=== PATIENT | male | born 1990 | race Caucasian/White ===

== ENCOUNTER 2022-02-02 18:35 | Emergency (ER) | payer SELFPAY ==
[~2022-02-02] VITALS: Ht 165.1 cm; Wt 82.0 kg
[2022-02-02 18:38] VITALS: BP 120/76
== END 2022-02-02 19:03 | disposition left against medical advice (07) ==
LOC: ER 18:35
DX: M25.511 Pain in right shoulder (principal); Z53.21 Procedure and treatment not carried out due to patient leaving prior to being seen by health care provider
CPT/HCPCS: 99283